=== PATIENT | female | born 1945 | race Caucasian/White ===

== ENCOUNTER 2020-09-15 12:58 | Inpatient (IN) | payer MEDICARE, BC ==
[~2020-09-15] VITALS: Ht 162.6 cm; Wt 54.4 kg
[2020-09-15] MEDS ORDERED: MAG HYDROX/AL HYDROX/SIMETH 30 ML UDC PO PRN (16:00)
[2020-09-15] MEDS ORDERED: TEMAZEPAM 7.5 MG CAPSULE PO PRN (16:00)
[2020-09-15] MEDS ORDERED: ZOLPIDEM TARTRATE 10 MG TABLET PO PRN (16:00)
[2020-09-15] MEDS ORDERED: BLOOD SUGAR DIAGNOSTIC 1 EACH STRIP IN ONE (16:00)
[2020-09-15] MEDS ORDERED: MAGNESIUM HYDROXIDE 30 ML UDC PO PRN (16:00)
[2020-09-15] MEDS ORDERED: ACETAMINOPHEN 325 MG TABLET PO PRN (16:00)
--- NOTE | 2020-09-15 16:05 | NUR ---
RN NOTE RECEIVED REPORT FROM MILA. RECEIVED PATIENT FROM [facility]. ARRIVED ON THE UNIT AT 1605 VIA GURNEY WITH 2 EMT ESCORTS. PATIENT ADMITTED ON A 5150 FOR GD AND DTO. PER HOLD PATIENT HAVE INCREASINGLY AGGRESSIVE AT HOME TOWARD HER AND CANNOT SAFELY REMAIN IN THE HOME. SAYS HE'S SCARED FOR THEIR SAFETY. PATIENT HAS EPISODES OF CONFUSION AND DEMENTIA. SINCE SHE ARRIVED SHE KEEPS WALKING ON THE HALLWAY AND STATING SHE DOESN'T HAVE ANY ROOM, NEEDS REDIRECTION. A/O X1. ON ROOM AIR, TOLERATING WELL. NO SOB NOTED. IN NO APPARENT DISTRESS. DENIES ANY PAIN OR DISCOMFORT AT THIS TIME. PT DENIES SI/HI AT THIS TIME. VS TAKEN. ACCUCHECK DONE. SKIN IS INTACT. WILL CONTINUE TO MONITOR PATIENT Q15 MINUTES FOR SAFETY BEHAVIOR GP'S PROTOCOL.
[2020-09-15] MEDS ORDERED: METO25TA6 PO (16:30)
[2020-09-15] MEDS ORDERED: MELO-105 PO (16:30)
[2020-09-15] MEDS ORDERED: ROSU5TAB PO (16:30)
[2020-09-15] MEDS ORDERED: [UNRECOGNIZED DRUG - CODE] IM (16:30)
[2020-09-15 16:45] VITALS: BP 147/114
[2020-09-15 17:24] VITALS: BP 147/114
[2020-09-15] MEDS ORDERED: QUETIAPINE FUMARATE 25 MG TABLET PO SCH (19:30)
[2020-09-15 21:17] VITALS: BP 144/87
[2020-09-15] MEDS: METOPROLOL TARTRATE 25 MG TABLET PO SCH (21:45)
--- NOTE | 2020-09-15 21:52 | NUR ---
ANGELIC NOT GIVEN CONSENT FOR PSCY MEDS NOT SIGNED BY PHYSICIAN WILL FOLLOW UP WITH MD.
--- NOTE | 2020-09-16 07:30 | NUR ---
RN NOTES PT AWAKE, ALERT AND VERBALLY RESPONSIVE, CALM, WALKING ALONG THE HALLWAY WITH SLOW AND STEADY GAIT, SAFETY PRECAUTIONS OBSERVED.
[2020-09-16 08:00] VITALS: BP 147/81
[2020-09-16] MEDS: METOPROLOL TARTRATE 25 MG TABLET PO SCH ×2 (08:21→21:00)
[2020-09-16 16:00] VITALS: BP 136/70
--- NOTE | 2020-09-16 16:31 | NUR ---
Individual Therapy: SW met with pt. inactivity room to conduct individual therapy regarding Positive Coping Mechanisms. Patient was alert and oriented. Pt. is pleasant and remained calm & cooperative. Patient stated that during stressful times, she attempts to be understanding and becomes anxious. SW educate dpt. about positive coping mechanisms. Pt. expressed understanding and stated she is willing to practice positive coping mechanisms. SW will continue to provide individual therapy as needed.
[2020-09-16] MEDS: QUETIAPINE FUMARATE 25 MG TABLET PO SCH (17:27)
--- NOTE | 2020-09-16 18:16 | NUR ---
RN NOTES PT AWAKE, ALERT, WALKING ALONG THE HALLWAY, WITH CONFUSION AND FLIGHT OF IDEAS, REDIRECTABLE, ABLE TO FOLLOW INSTRUCTIONS, PM MEDS GIVEN, COMPLIANT WITH MEDICATIONS, NEEDS ATTENDED.
[2020-09-16 18:20] LABS: ALBUMIN 4.5 g/dL (3.4-5.0); BILIRUBIN,TOTAL 0.4 mg/dL (0.2-1.0); CALCIUM, SERUM 9.9 mg/dL (8.5-10.1); CREATININE 0.9 mg/dL (0.6-1.3); POTASSIUM 3.7 mmol/L (3.5-5.1); TOTAL PROTEIN, SERUM 8.2 g/dL (6.4-8.2)
[2020-09-16 19:55] VITALS: BP 148/91
[2020-09-16 20:24] VITALS: BP 148/91
[2020-09-16 20:54] VITALS: BP 106/66
[2020-09-16 21:40] VITALS: BP 106/66
[2020-09-16] MEDS: DIVALPROEX SODIUM 125 MG CAP.SPRINK PO SCH (21:52)
--- NOTE | 2020-09-16 21:53 | NUR ---
RN NOTE: REFUSED LOPRESSOR PATIENT REFUSED LOPRESSOR 25 MG, BP 106/66, 75. PT. IS EASILY AGITATED, ANXIOUS & WALKS AWAY STATING," I TOLD YOU THIS LAST NIGHT, YOU ARE A DEMON." GAVE SPACE TO THE PATIENT TO CALM DOWN & WILL CONTINUE TO MONITOR FOR SAFETY, MOOD & BEHAVIOR.
--- NOTE | 2020-09-16 22:13 | NUR ---
RN NOTE: CONFUSED/DISORIENTED SINCE THE BEGINNING OF SENIOR ORACLE DBA, PATIENT NOTED TO BE VERY CONFUSED, EASILY AGITATED, RESTLESS & ANXIOUS, VERY PARANOID & DELUSIONAL, DISORIENTED, NON REDIRECTABLE AT TIMES, PATIENT KEEPS REMOVING HER CLOTHES, SOCKS & KEEPS MAKING & UNMAKING HER BED SEVERAL TIMES. PT. KEEPS REPEATING," WHERE IS MY , MY CHILDREN & THE DOGS THE ONE GOT KILLED." PT. IS BEING REDIRECTED FREQUENTLY. SAFETY MEASURES IN PLACE. WILL CONTINUE TO MONITOR CLOSELY FOR MOOD, BEHAVIOR & SAFETY.
[2020-09-17 08:00] VITALS: BP 178/97
[2020-09-17] MEDS: QUETIAPINE FUMARATE 25 MG TABLET PO SCH ×2 (09:00→16:14)
[2020-09-17] MEDS: DIVALPROEX SODIUM 125 MG CAP.SPRINK PO SCH ×2 (09:22→21:39)
[2020-09-17] MEDS: METOPROLOL TARTRATE 25 MG TABLET PO SCH ×2 (09:22→21:39)
--- NOTE | 2020-09-17 09:30 | NUR ---
RN NOTE: PATIENTS DR. VIOLA CLIFFORD REQUESTING TO SPEAK WITH , PHONE NUMBER PROVIDED TO DR. ANAND. WILL CONTINUE TO MONITOR PATIENT.
--- NOTE | 2020-09-17 14:45 | NUR ---
Phone call: SW spoke to the (Wilmar Adorno, ) via phone at 1445 pm to retrieve historian for the pt. Pt is a poor historian and non responsive due to psychosis during assessment. SW attempted to assess the pt at 1220 pm and the second attempt at 1345pm. SW also discussed possible discharge plan to house or alternate placement once the pt is medically discharge from home.
--- NOTE | 2020-09-17 15:42 | NUR ---
Social service phone call: [facility] [address] [place] [phone]; ), regarding pt's referral packet to be reviewed for acceptance at facility after medically discharged from the hospital
--- NOTE | 2020-09-17 15:42 | NUR ---
Initial Discharge Plan: Pt currently resides at [facility] [place]. [address], . If pt does not discharge to home , SW spoke to Admission ([facility]) [phone] to review pt.s referral packet. LAURYN will work the pt and the MD appropriate discharged planning. SW will form a safe and proper discharge.
[2020-09-17 16:00] VITALS: BP 119/70
[2020-09-17 20:10] VITALS: BP 157/82
[2020-09-17 20:13] VITALS: BP 157/82
--- NOTE | 2020-09-17 20:33 | NUR ---
RN NOTE SNACK GIVEN TO THE PATIENT & TOLERATED WELL.
[2020-09-18 08:00] VITALS: BP 141/91
[2020-09-18] MEDS: DIVALPROEX SODIUM 125 MG CAP.SPRINK PO SCH (08:21)
[2020-09-18] MEDS: QUETIAPINE FUMARATE 25 MG TABLET PO SCH (08:21)
[2020-09-18] MEDS: METOPROLOL TARTRATE 25 MG TABLET PO SCH ×2 (08:22→20:36)
[2020-09-18 16:00] VITALS: BP 156/80
--- NOTE | 2020-09-18 20:00 | NUR ---
RN NOTE RECEIVED PT. AMBULATING IN THE HALLWAY, STEADY, COMMUNICATING WITH PEERS. WORRIED & LOOKING FOR HER . REDIRECTED THE PATIENT. SNACK GIVEN & TOLERATED WELL.
[2020-09-18 20:21] VITALS: BP 151/83
[2020-09-18 20:22] VITALS: BP 151/83
[2020-09-18] MEDS: OLANZAPINE ZYDIS 5 MG TAB.RAPDIS PO SCH (21:16)
[2020-09-19 08:00] VITALS: BP 151/91
[2020-09-19] MEDS: METOPROLOL TARTRATE 25 MG TABLET PO SCH ×2 (08:09→21:32)
--- NOTE | 2020-09-19 10:36 | NUR ---
Initial Discharge plan: SW spoke to the (Wilmar Adorno [phone]) regarding discharge plan via phone at 1025 am. Pt currently resides at [address] [place], [place] [address] [place]. [address],[phone]. If pt does not discharge to home, SW spoke to Admission ([facility], [address] [place] [address] to review pt.s referral packet. LAURYN will work the pt and the MD appropriate discharged planning. SW will form a safe and proper discharge.
--- NOTE | 2020-09-19 11:10 | NUR ---
Phone call: SW spoke with admissions (Rita [phone]) [facility], [phone], [address] [place] [address]) regarding availability and acceptance with pt. SW sent referral packet to admission (Rita : , . Plan: SW to follow up with admissions (Rita :([phone]) [facility] with acceptance.
[2020-09-19] MEDS: clonazePAM 0.5 MG TABLET PO PRN ×2 (12:06→16:34)
--- NOTE | 2020-09-19 12:06 | NUR ---
RN NOTE: ANXIETY PT EXHIBITING INCREASED ANXIETY AND AGITATION. RUMINATING RE "HOW DO I GET OUT OF HERE" AND "MY IS NOT IN THE COUNTRY. VIOLA. HIS NAME IS VIOLA". HYPERVERBAL, THOUGHT BLOCKING, PACING THE HALLWAY. MEDICATED WITH KLONOPIN 0.5 MG PO
[2020-09-19 16:00] VITALS: BP 121/50
--- NOTE | 2020-09-19 16:34 | NUR ---
RN NOTE: ANXIETY PT EXHIBITING INCREASED AGITATION AND ANXIETY. ELEVATED BP. RUMINATING RE BEING MISSING. MEDICATED WITH KLONOPIN 0.5 MG PO PRN.
[2020-09-19 20:01] VITALS: BP 149/80
[2020-09-19] MEDS: ATORVASTATIN 10 MG TABLET PO SCH (21:30)
[2020-09-19] MEDS: OLANZAPINE ZYDIS 5 MG TAB.RAPDIS PO SCH (21:33)
[2020-09-20 08:00] VITALS: BP 149/70
[2020-09-20] MEDS: METOPROLOL TARTRATE 25 MG TABLET PO SCH ×2 (08:13→21:07)
[2020-09-20 16:00] VITALS: BP 158/86
--- NOTE | 2020-09-20 16:20 | NUR ---
RN NOTE: ANXIETY PT ANXIOUS ELEVATED BP. MEDICATED WITH KLONOPIN 0.5 MG PO PRN.WILL CONTINUE MONITORING
[2020-09-20] MEDS: clonazePAM 0.5 MG TABLET PO PRN (16:21)
--- NOTE | 2020-09-20 17:30 | NUR ---
RN NOTE- NOTIFIED THAT PT TO HAVE MODERNA 2ND DOSE TOMORROW OR COVID. PHARMACY STATED THEY DONT CARRY MODERNA. PHONED AND INFORMED HIM AFTER SPEAKING W DIRECTOR CAMRON STEVENS. VERBALIZED UNDERSTANDING. STATED HE WILL TRY TO OBTAIN AFTER DC.
--- NOTE | 2020-09-20 17:47 | NUR ---
GPS RN NOTE: DR PATTEN NOTIFIED PT BP ELEVATED 169/85 P 69 REACHED AFTER 30 MIN 158/84 PULSE 74.PER MD CONTINUE MONITORING . PATIENT DUE FOR SECOND DOSE OF MODERNA AT 09/21/20 DR. PATTEN NOTIFIED PER MD SHE CAN GET VACCINE AFTER THE DISCHARGE . PATIENT NOTIFIED AND AGREED. WILL CONTINUE MONITORING.
[2020-09-20 20:21] VITALS: BP 159/79
[2020-09-20] MEDS: ATORVASTATIN 10 MG TABLET PO SCH (21:06)
[2020-09-20] MEDS: OLANZAPINE ZYDIS 5 MG TAB.RAPDIS PO SCH (21:06)
[2020-09-20 22:00] VITALS: BP 132/74
[2020-09-20] MEDS: TEMAZEPAM 7.5 MG CAPSULE PO PRN (23:10)
--- NOTE | 2020-09-20 23:14 | NUR ---
GPS-RN NOTES: INSOMNIA PATIENT UNABLE TO SLEEP. ADMINISTERED RESTORIL 15MG PO ORDERED. WILL CONTINUE TO MONITOR.
[2020-09-21 08:00] VITALS: BP 140/72
[2020-09-21] MEDS: METOPROLOL TARTRATE 25 MG TABLET PO SCH ×2 (09:08→21:56)
[2020-09-21 16:00] VITALS: BP_SYST 155; BP_SYST 99; BP_DIAS 59; BP_DIAS 81
[2020-09-21 20:06] VITALS: BP 114/75
[2020-09-21] MEDS: ATORVASTATIN 10 MG TABLET PO SCH (21:55)
[2020-09-21] MEDS: OLANZAPINE ZYDIS 5 MG TAB.RAPDIS PO SCH (21:56)
[2020-09-22 08:00] VITALS: BP 130/99
[2020-09-22] MEDS: METOPROLOL TARTRATE 25 MG TABLET PO SCH ×2 (09:38→21:16)
[2020-09-22 16:00] VITALS: BP 135/65
[2020-09-22 20:00] VITALS: BP 138/65
[2020-09-22 20:54] VITALS: BP 138/65
[2020-09-22] MEDS: OLANZAPINE ZYDIS 5 MG TAB.RAPDIS PO SCH (21:42)
[2020-09-22] MEDS: ATORVASTATIN 10 MG TABLET PO SCH (21:42)
[2020-09-23 08:00] VITALS: BP 167/81
[2020-09-23] MEDS ORDERED: CLONIDINE HCL 0.1 MG TABLET PO PRN (09:30)
[2020-09-23] MEDS: METOPROLOL TARTRATE 25 MG TABLET PO SCH ×2 (09:33→21:50)
[2020-09-23 16:00] VITALS: BP 152/88
--- NOTE | 2020-09-23 16:27 | NUR ---
Assisted Living Contact: SW called esthetician/spa coordinator, Rita , and left a voicemail stating that the SW would like to follow up on the referral.
--- NOTE | 2020-09-23 16:28 | NUR ---
Family Contact: SW spoke to the pts , Wilmar Adorno ([phone]), who stated that the pt cannot be discharged home under any circumstance as he is the main trigger for the pts aggression. Pts stated that the only option is [facility] and SW stated that she will continue to follow up and inform him about any updates.
[2020-09-23 21:20] VITALS: BP 150/79
[2020-09-23] MEDS: OLANZAPINE ZYDIS 5 MG TAB.RAPDIS PO SCH (21:50)
[2020-09-23] MEDS: ATORVASTATIN 10 MG TABLET PO SCH (21:50)
[2020-09-24 08:00] VITALS: BP 149/90
[2020-09-24] MEDS: METOPROLOL TARTRATE 25 MG TABLET PO SCH ×2 (08:32→21:23)
--- NOTE | 2020-09-24 09:00 | NUR ---
WANDERING ABOUT UNIT,OFFERS NO COMPLAINTS.VERY PLEASANT AND CONFUSED.
--- NOTE | 2020-09-24 11:01 | NUR ---
Family Contact: LAURYN spoke to the pts , Wilmar Adorno ([phone]), who stated that he wanted an update on the pts treatment and discharge plan. LAURYN stated that she has been trying to contact the admissions at [facility] and once there is confirmation and the necessary steps to the admission are taken, then the pt will be discharged. LAURYN assured him that she would keep him informed.
--- NOTE | 2020-09-24 11:01 | NUR ---
Assisted Living Contact: LAURYN called preventive maintenance coordinator, Rita , and left a voicemail stating that the LAURYN would like to follow up on the referral. Addendum: 09/30/20 at 0909 by LAURYN DICKSON Visual Journalist at [facility]
[2020-09-24 16:00] VITALS: BP 127/98
--- NOTE | 2020-09-24 16:32 | NUR ---
Assisted Living Contact: SW called surgical coordinator, Rita , at [facility] and she stated that she will have her DON come and evaluate the pt on Wednesday with a potential discharge date of Wednesday.
--- NOTE | 2020-09-24 16:36 | NUR ---
Family Contact: LAURYN spoke to the pts , Wilmar Adorno ([phone]), and informed him that the assessment will take place on Wednesday for a possible discharge for Wednesday.
[2020-09-24 21:01] VITALS: BP 162/79
[2020-09-24] MEDS: ATORVASTATIN 10 MG TABLET PO SCH (21:23)
[2020-09-24] MEDS: OLANZAPINE ZYDIS 5 MG TAB.RAPDIS PO SCH (21:23)
--- NOTE | 2020-09-25 06:29 | NUR ---
GPS RN CLOSING NOTES: PATIENT LAYING ON BED AWAKE, A/O X2, DISORGANIZED, SLEPT 6HOURS THIS SHIFT. NO S/S OF DISTRESS. RESPIRATION EVEN AND UNLABORED WITH EQUAL RISE AND FALL OF THE CHEST ON ROOM AIR. OFFERED FLUID TOLERATED. ALL PATIENT CARE NEEDS HAVE BEEN MET ANTICIPATED. WILL CONTINUE TO MONITOR FOR SAFETY, MOOD AND BEHAVIOR AND ENDORSE TO AM SHIFT.
[2020-09-25 06:52] LABS: BASOPHILS # (AUTO) 0.1 /CMM (0.0-0.2); BASOPHILS % (AUTO) 1.2 % (0.0-2.0); EOSINOPHILS % (AUTO) 2.6 % (0.0-6.0); HEMATOCRIT 39 % (33-45); HEMOGLOBIN 13.1 g/dL (11.5-14.8); LYMPHOCYTES % (AUTO) 34.7 % (20.0-44.0); MEAN CORPUSCULAR HGB CONC 33 g/dl (31.0-36.0); MEAN CORPUSCULAR VOLUME 89 fL (82-100); MONOCYTES # (AUTO) 0.5 /CMM (0.1-1.30); NEUTROPHILS # (AUTO) 3.1 /CMM (1.8-8.9); NEUTROPHILS % (AUTO) 53.5 % (43.0-81.0); PLATELET COUNT (AUTO) 274 /CMM (150-450); WHITE BLOOD COUNT (AUTO) 5.8 K/uL (4.3-11.0)
[2020-09-25 07:51] LABS: CALCIUM, SERUM 9.2 mg/dL (8.5-10.1); CREATININE 0.6 mg/dL (0.6-1.3); POTASSIUM 3.9 mmol/L (3.5-5.1)
[2020-09-25 08:00] VITALS: BP 137/80
[2020-09-25] MEDS: METOPROLOL TARTRATE 25 MG TABLET PO SCH ×2 (09:24→22:06)
[2020-09-25 16:00] VITALS: BP 150/78
--- NOTE | 2020-09-25 16:40 | NUR ---
Family Contact: SW spoke to the pts , Wilmar Adorno ([phone]), and confirmed that the pt is going to be evaluated by the facility on Wednesday and that the projected discharge date is Wednesday at this time.
[2020-09-25 20:00] VITALS: BP 160/83
[2020-09-25] MEDS: OLANZAPINE ZYDIS 5 MG TAB.RAPDIS PO SCH (22:05)
[2020-09-25] MEDS: ATORVASTATIN 10 MG TABLET PO SCH (22:05)
--- NOTE | 2020-09-26 06:49 | NUR ---
bet taker notes pt remains sleeping at this time, not in any distress noted. she's been cooperative even she's disoriented , compliance with her medication . patient still needs re-direction . Encourage pt to interact and atten group therapy and verbalize her needs and concerns. will continue Q 15 minutes monitoring for safety and behavior. will endorse to am nurse for continuity of care.
[2020-09-26 08:00] VITALS: BP 150/76
[2020-09-26] MEDS: METOPROLOL TARTRATE 25 MG TABLET PO SCH ×2 (08:25→21:13)
[2020-09-26 16:00] VITALS: BP 131/59
[2020-09-26 19:50] VITALS: BP 147/87
[2020-09-26 19:54] VITALS: BP 147/87
[2020-09-26] MEDS: OLANZAPINE ZYDIS 5 MG TAB.RAPDIS PO SCH (21:45)
[2020-09-26] MEDS: ATORVASTATIN 10 MG TABLET PO SCH (21:45)
[2020-09-27] VITALS (7 sets, daily range): BP systolic 144–200; BP diastolic 73–95
[2020-09-27] MEDS: METOPROLOL TARTRATE 25 MG TABLET PO SCH ×2 (08:40→20:21)
[2020-09-27] MEDS: AMLODIPINE BESYLATE 2.5 MG TABLET PO SCH (10:19)
--- NOTE | 2020-09-27 15:10 | NUR ---
Assisted Living Contact: LAURYN met with Jorje from [facility] as he conducted an evaluation for the pt to be admitted. Jorje stated that the pt presented really well but he noticed her by the door and spoke to the nurse who stated that she watches the door. Due to that, Jorje stated that she may need to stay longer because she may be an elopement risk. He stated that Wednesday may be a more appropriate discharge date instead of Wednesday. LAURYN stated that she will follow up on Wednesday.
--- NOTE | 2020-09-27 20:25 | NUR ---
RN NOTE: HYPERTENSION PATIENT'S BP IS 200/86, 79, DENIES ANY C/O CHEST PAIN, DIZZINESS, HEADACHE, BLURRED VISION. SCHEDULED METOPROLOL TARTRATE 25 MG PO ADMINISTERED. PATIENT IS RESTING IN SEMI TORREZ POSITION AT THIS TIME. NO ACUTE DISTRESS NOTED. CONTINUING TO MONITOR FOR CHANGE OF CONDITION.
--- NOTE | 2020-09-27 21:20 | NUR ---
RN NOTE PATIENT'S VITALS ARE 184/95, 65, 18, 97.9, 97% AT RA, NO C/O PAIN VERBALIZED BY THE PATIENT AT THIS TIME.
[2020-09-27] MEDS: ATORVASTATIN 10 MG TABLET PO SCH (21:21)
[2020-09-27] MEDS: OLANZAPINE ZYDIS 5 MG TAB.RAPDIS PO SCH (21:22)
--- NOTE | 2020-09-27 21:59 | NUR ---
RN NOTE: HYPERTENSION PATIENT'S VITALS ARE 185/93, 65, 20, 97.8, 96% AT RA. CLONIDINE 0.1 MG PRN ADMINISTERED ORDERED. PATIENT IS ASYMPTOMATIC AT THIS TIME. WILL CONTINUE TO MONITOR CLOSELY.
--- NOTE | 2020-09-27 22:35 | NUR ---
RN NOTE PATIENT'S VITALS ARE 158/73, 75, 18, 97.9, 96% AT ROOM AIR. NO ACUTE DISTRESS NOTED. CONTINUING TO MONITOR.
--- NOTE | 2020-09-27 23:15 | NUR ---
RN NOTE PATIENT'S VITALS ARE 144/76, 70, 18, 97.8, 97% AT ROOM AIR. PATIENT IS SLEEPING COMFORTABLY. NO ACUTE DISTRESS OR CHANGES NOTED. WILL CONTINUE TO MONITOR THE PATIENT CLOSELY.
[2020-09-28 08:00] VITALS: BP 152/77
[2020-09-28] MEDS: METOPROLOL TARTRATE 25 MG TABLET PO SCH ×2 (09:07→21:05)
[2020-09-28] MEDS: AMLODIPINE BESYLATE 2.5 MG TABLET PO SCH (09:08)
--- NOTE | 2020-09-28 09:20 | NUR ---
BP ELEVATED.PT. TOOK METOPROLOL ONLY AND WHEN ENCOURAGED TO TAKE NORVASC,VERY SUSPICIOUS AND THREW PILL ON FLOOR.
--- NOTE | 2020-09-28 16:00 | NUR ---
refused afternoon vitals.
--- NOTE | 2020-09-28 18:57 | NUR ---
no change in status.
--- NOTE | 2020-09-28 19:30 | NUR ---
GPS RN OPENING NOTE: PATIENT SITTING ON BED AWAKE, A/O X2. DENEIS PAIN. DENIES SI/HI AT THIS TIME. DISORGANIZED THOUGHT PROCESS BUT ABLE TO MAKE NEEDS KNOWN.. NO S/S OF PHYSICAL DISTRESS. RESPIRATION EVEN AND UNLABORED WITH EQUAL RISE AND FALL OF THE CHEST ON ROOM AIR. WILL CONTINUE TO MONITOR FOR SAFETY Q15 MINS WITH THE HELP OF STAFF TO MAINTAIN SAFETY.
[2020-09-28 20:36] VITALS: BP 142/72
[2020-09-28] MEDS: OLANZAPINE ZYDIS 5 MG TAB.RAPDIS PO SCH (21:04)
[2020-09-28] MEDS: ATORVASTATIN 10 MG TABLET PO SCH (21:05)
[2020-09-29 08:00] VITALS: BP 150/80
[2020-09-29] MEDS: AMLODIPINE BESYLATE 2.5 MG TABLET PO SCH (08:27)
[2020-09-29] MEDS: METOPROLOL TARTRATE 25 MG TABLET PO SCH ×2 (08:27→21:39)
[2020-09-29 16:00] VITALS: BP 154/69
[2020-09-29 20:00] VITALS: BP 144/54
[2020-09-29] MEDS: ATORVASTATIN 10 MG TABLET PO SCH (21:39)
[2020-09-29] MEDS: OLANZAPINE ZYDIS 5 MG TAB.RAPDIS PO SCH (21:39)
[2020-09-30] MEDS: TEMAZEPAM 7.5 MG CAPSULE PO PRN (00:08)
--- NOTE | 2020-09-30 06:51 | NUR ---
GPS RN CLOSING NOTES: PATIENT LAYING ON BED AWAKE, A/O X2. SLEPT 6HOURS THIS SHIFT. NO S/S OF DISTRESS. DENIES ANY PAIN. RESPIRATION EVEN AND UNLABORED WITH EQUAL RISE AND FALL OF THE CHEST ON ROOM AIR. ALL PATIENT CARE NEEDS HAVE BEEN MET ANTICIPATED. WILL CONTINUE TO MONITOR FOR SAFETY, MOOD AND BEHAVIOR AND ENDORSE TO AM SHIFT.
[2020-09-30 08:00] VITALS: BP 137/66
[2020-09-30] MEDS: AMLODIPINE BESYLATE 2.5 MG TABLET PO SCH (08:28)
[2020-09-30] MEDS: METOPROLOL TARTRATE 25 MG TABLET PO SCH ×2 (08:29→21:38)
--- NOTE | 2020-09-30 09:12 | NUR ---
Family Contact: SW spoke to the pts , Wilmra Adorno ([phone]), and informed him that the pt was evaluated on Wednesday and the senior informatica developer stated that the pt may pose as an elopement risk. SW stated that she will contact the facility and inquire about when they would be willing to accept the pt. SW stated that she will keep pts involved in the process.
--- NOTE | 2020-09-30 09:37 | NUR ---
Assisted Living Contact: LAURYN called Document Control ClerkJanet , and inquired about whether or not the pt can be discharged to their facility the following day. She stated that she will contact Jorje and let the SW know.
--- NOTE | 2020-09-30 14:05 | NUR ---
602 Form: LAURYN faxed a completed 602 form to [facility] with attn to Flora to the fax number: [phone].
--- NOTE | 2020-09-30 15:48 | NUR ---
Assisted Living Contact: Jorje from [facility] contacted the SW and stated that the pt will be accepted tomorrow.
[2020-09-30 16:00] VITALS: BP 123/67
--- NOTE | 2020-09-30 16:21 | NUR ---
Family Contact: LAURYN spoke to the pts , Wilmar Adorno ([phone]), and informed him the pt will discharge tomorrow and stated that she will be transported via [facility] and he stated he would be able to fund it.
[2020-09-30 20:00] VITALS: BP 155/66
[2020-09-30] MEDS: ATORVASTATIN 10 MG TABLET PO SCH (21:39)
[2020-09-30] MEDS: OLANZAPINE ZYDIS 5 MG TAB.RAPDIS PO SCH (21:39)
--- NOTE | 2020-10-01 06:27 | NUR ---
GPS RN NOTES: PATIENT TO BE DISCHARGED TODAY. COVID-19 SWAB FOR PLACEMENT TAKEN AND SENT TO LAB.
--- NOTE | 2020-10-01 06:35 | NUR ---
GPS RN CLOSING NOTES: PATIENT LAYING ON BED AWAKE, A/O PERSON AND PLACE. SLEPT 5.5HOURS THIS SHIFT. NO S/S OF DISTRESS. DENIES SI/HI, PAIN AT THIS TIME. RESPIRATION EVEN AND UNLABORED WITH EQUAL RISE AND FALL OF THE CHEST ON ROOM AIR. ALL PATIENT CARE NEEDS HAVE BEEN MET ANTICIPATED. WILL CONTINUE TO MONITOR FOR SAFETY, MOOD AND BEHAVIOR AND ENDORSE TO AM SHIFT.
[2020-10-01 08:00] VITALS: BP 150/82
--- NOTE | 2020-10-01 08:00 | NUR ---
RECEIVED PT. IN AM ,VS STABLE.NO ACUTE DISTRESS.SKIN WARM AND DRY.
[2020-10-01] MEDS: AMLODIPINE BESYLATE 2.5 MG TABLET PO SCH (08:33)
[2020-10-01] MEDS: METOPROLOL TARTRATE 25 MG TABLET PO SCH (08:34)
--- NOTE | 2020-10-01 08:49 | NUR ---
ShelterBatch Records Clerk [place] Contact: LAURYN called Janet Aguero, private marketing and promotions manager ([phone]), and inquired about whether or not the pt has a psychiatrist lined up and she stated that she was working on referring the pt to Dr. Brisa De Jesus, with [facility]. She asked the SW to send her some paperwork regarding most recent progress notes and medication list. LAURYN sent the information.
--- NOTE | 2020-10-01 12:38 | NUR ---
Discharge Note: Pt will be discharged to [facility] located at [address] [place] [address], [place] [address]; . Pt will be transported via [facility] at they will be picking up the pt between 12:30-1pm. Pts , Wilmar ([phone]), was notified of the discharge. Upon discharge, pt appears to be in a euthymic mood and presents with an anxious affect. Pt appears to be oriented x2 (place and self). Pt denies suicidal and homicidal ideation as well as auditory and visual hallucinations. Pt appears to be ambulatory with a steady gait. Pt appears to be well groomed and appropriately dressed. Pt will be under the care of psychiatrist, Dr. Callahan, located at [address] [facility] [address], [place] [address]; per pts private audio/visual manager, Janet ([phone]). Pt will also be under the care of revenue liaison, Dr. Rodolfo Guo, located at [address] [facility] [address], [place] [address]; . Pts multidisciplinary exit care was completed, signed and a copy was provided to the pt.
--- NOTE | 2020-10-01 13:25 | NUR ---
ALL SIGNATURES OBTAINED.PAPERS COMPLETE.TAKEN TO LOBBY FOR DC BY BAND SAW RUNNER IN W/C.VERY CONFUSED,BUT DENIES SUICIDAL OR HOMICIDAL IDEATION.TAKEN TO FACILITY BY PRODUCTION MANUFACTURING WORKER.
[2020-10-01 16:00] VITALS: BP 133/54
== END 2020-10-01 13:15 | DRG 885 ==
LOC: GPS 15:54
PROVIDERS: ADMIT Psychiatry & Neurology Psychiatry; ATTEND Nurse Practitioner Acute Care
DX: F25.9 Schizoaffective disorder, unspecified (principal); F29 Unspecified psychosis not due to a substance or known physiological condition; F41.9 Anxiety disorder, unspecified; Z73.6 Limitation of activities due to disability; R53.1 Weakness; R27.8 Other lack of coordination; Z91.81 History of falling; E78.5 Hyperlipidemia, unspecified; I10 Essential (primary) hypertension; F03.90 Unspecified dementia, unspecified severity, without behavioral disturbance, psychotic disturbance, mood disturbance, and anxiety; F32.9 Major depressive disorder, single episode, unspecified; Z79.899 Other long term (current) drug therapy
CPT/HCPCS: 36415; 71045-TC; 80048-TC; 80053-TC; 80061-TC; 82962-TC; 85025-TC; 87081-TC

== ENCOUNTER → 2022-03-14 | Emergency (ER) | payer MEDICARE, BC ==
[~2022-03-14] VITALS: Ht 177.8 cm; Wt 61.7 kg
[~2022-03-14] MED LIST: MELO-105 PO; METO25TA6 PO; ROSU5TAB PO; [UNRECOGNIZED DRUG - CODE] IM
--- NOTE | 2022-03-14 14:00 | NUR ---
ETA 1500 BLS TRANSPORT VIA [facility].
[2022-03-14 14:48] VITALS: BP 138/79
--- NOTE | 2022-03-14 14:49 | NUR ---
Patient discharged back to snf in stable condition. Written and verbal after care instructions given to EMT and vehicle care specialist , verbalized understanding of instruction.
== END ==
LOC: ER 12:20
DX: M25.552 Pain in left hip (principal); I10 Essential (primary) hypertension; Z96.642 Presence of left artificial hip joint; Z79.899 Other long term (current) drug therapy
CPT/HCPCS: 73502

== ENCOUNTER 2023-10-08 12:22 | Emergency (ER) | payer MEDICARE, BC ==
[~2023-10-08] VITALS: Ht 165.1 cm; Wt 64.4 kg
[2023-10-08 14:09] VITALS: BP 125/60; TEMP 98.4; O2SAT 97
== END 2023-10-08 14:10 ==
LOC: ER 12:24
DX: S09.90XA Unspecified injury of head, initial encounter (principal); F03.90 Unspecified dementia, unspecified severity, without behavioral disturbance, psychotic disturbance, mood disturbance, and anxiety; I10 Essential (primary) hypertension; E78.5 Hyperlipidemia, unspecified; Z96.649 Presence of unspecified artificial hip joint; Z79.899 Other long term (current) drug therapy; W18.30XA Fall on same level, unspecified, initial encounter; Y93.89 Activity, other specified; Y92.89 Other specified places as the place of occurrence of the external cause; Y99.8 Other external cause status
CPT/HCPCS: 70450-TC

== ENCOUNTER 2024-02-26 11:23 | Inpatient (IN) | payer MEDICARE, BC ==
[~2024-02-26] VITALS: Ht 165.1 cm; Wt 65.8 kg
[2024-02-26 12:04] LABS: BASOPHILS # (AUTO) 0.1 K/uL (0.0-0.2); BASOPHILS % (AUTO) 0.6 % (0.0-2.0); EOSINOPHILS # (AUTO) 0.1 K/uL (0.0-0.7); EOSINOPHILS % (AUTO) 0.9 % (0.0-6.0); HEMATOCRIT 37 % (33-45); HEMOGLOBIN 12.4 g/dL (11.5-14.8); LYMPHOCYTES # (AUTO) 0.8 K/uL (0.8-4.8); LYMPHOCYTES % (AUTO) 8.4 % (20.0-44.0); MEAN CORPUSCULAR HEMOGLOBIN 30 PG (26.0-33.0); MEAN CORPUSCULAR HGB CONC 34 g/dl (31.0-36.0); MEAN CORPUSCULAR VOLUME 87 fL (82-100); MONOCYTES # (AUTO) 0.5 K/uL (0.1-1.30); MONOCYTES % (AUTO) 4.8 % (2.0-12.0); NEUTROPHILS # (AUTO) 8.3 K/uL (1.8-8.9); NEUTROPHILS % (AUTO) 85.3 % (43.0-81.0); PLATELET COUNT (AUTO) 316 K/uL (150-450); RED BLOOD CELL COUNT(AUTO) 4.19 MIL/uL (4.0-5.2); RED CELL DISTRIBUTION WIDTH 14.2 % (11.5-15.0); WHITE BLOOD COUNT (AUTO) 9.7 K/uL (4.3-11.0)
[2024-02-26 12:11] LABS: CALCIUM, SERUM 9.7 mg/dL (8.5-10.1); CARBON DIOXIDE 32 mmol/L (21-32); CHLORIDE 106 mmol/L (98-107); CREATININE 0.9 mg/dL (0.6-1.3); GLUCOSE 109 mg/dL (74-106); POTASSIUM 3.9 mmol/L (3.5-5.1); SODIUM SERUM 143 mmol/L (136-145); UREA NITROGEN, BLOOD 23 mg/dL (7-18)
[2024-02-26] MEDS ORDERED: ASPIRIN 325 MG TABLET ONE (13:09)
[2024-02-26] MEDS ORDERED: OLAN2.5T3 PO (13:24)
[2024-02-26] MEDS ORDERED: HYDR25TA4 PO (13:24)
[2024-02-26] MEDS ORDERED: TRAZ-257 PO (13:24)
[2024-02-26] MEDS ORDERED: CLON0.122 PO (13:24)
[2024-02-26] MEDS ORDERED: FURO20TA4 PO (13:24)
[2024-02-26] MEDS ORDERED: IBUP-1953 PO (13:24)
[2024-02-26] MEDS: ASPIRIN 325 MG TABLET PO ONE (13:28)
[2024-02-26] MEDS ORDERED: ONDANSETRON HCL/PF 4 MG/2 ML VIAL IVP PRN (15:00)
[2024-02-26] MEDS ORDERED: ACETAMINOPHEN 325 MG TABLET PO PRN (15:00)
[2024-02-26] MEDS ORDERED: Z GUARD REMEDY 4 OZ OINT TP PRN (15:00)
[2024-02-26] MEDS ORDERED: clonazePAM 1 MG TABLET PO PRN (15:00)
[2024-02-26] MEDS ORDERED: ZOLPIDEM TARTRATE 5 MG TABLET PO PRN (15:00)
[2024-02-26] MEDS ORDERED: MAG HYDROX/AL HYDROX/SIMETH 30 ML UDC PO PRN (15:00)
[2024-02-26] MEDS ORDERED: MAGNESIUM HYDROXIDE 30 ML UDC PO PRN (15:00)
[2024-02-26] MEDS ORDERED: HYDROCODONE/APAP 5/325MG TABLET PO PRN (15:00)
[2024-02-26 16:30] VITALS: BP 150/68; TEMP 97.9; O2SAT 99
[2024-02-26] MEDS: IV NS 0.9% 1,000 ML IV PRN (18:38)
[2024-02-26 20:30] VITALS: BP 169/80; TEMP 98.2; O2SAT 95
[2024-02-26] MEDS: ENOXAPARIN SODIUM 40 MG/0.4 ML DISP.SYRIN SQ SCH (22:47)
[2024-02-26] MEDS: TRAZODONE 50 MG TABLET PO SCH (22:48)
[2024-02-27 04:49] VITALS: BP 151/66; TEMP 97.5; O2SAT 96
[2024-02-27 07:38] LABS: BASOPHILS # (AUTO) 0.1 K/uL (0.0-0.2); BASOPHILS % (AUTO) 0.6 % (0.0-2.0); EOSINOPHILS # (AUTO) 0.2 K/uL (0.0-0.7); EOSINOPHILS % (AUTO) 2.1 % (0.0-6.0); HEMATOCRIT 39 % (33-45); LYMPHOCYTES # (AUTO) 1.8 K/uL (0.8-4.8); LYMPHOCYTES % (AUTO) 19.8 % (20.0-44.0); MEAN CORPUSCULAR HEMOGLOBIN 29 PG (26.0-33.0); MEAN CORPUSCULAR HGB CONC 33 g/dl (31.0-36.0); MEAN CORPUSCULAR VOLUME 87 fL (82-100); MONOCYTES # (AUTO) 0.6 K/uL (0.1-1.30); MONOCYTES % (AUTO) 6.4 % (2.0-12.0); NEUTROPHILS # (AUTO) 6.6 K/uL (1.8-8.9); NEUTROPHILS % (AUTO) 71.1 % (43.0-81.0); PLATELET COUNT (AUTO) 269 K/uL (150-450); RED BLOOD CELL COUNT(AUTO) 4.46 MIL/uL (4.0-5.2); RED CELL DISTRIBUTION WIDTH 14.4 % (11.5-15.0); WHITE BLOOD COUNT (AUTO) 9.3 K/uL (4.3-11.0)
[2024-02-27] MEDS: PANTOPRAZOLE 40 MG TABLET.DR PO SCH (07:52)
[2024-02-27 07:53] LABS: CALCIUM, SERUM 9.7 mg/dL (8.5-10.1); CARBON DIOXIDE 25 mmol/L (21-32); CHLORIDE 104 mmol/L (98-107); CREATININE 0.6 mg/dL (0.6-1.3); GLUCOSE 97 mg/dL (74-106); MAGNESIUM 2.3 mg/dL (1.8-2.4); POTASSIUM 3.3 mmol/L (3.5-5.1); SODIUM SERUM 138 mmol/L (136-145); UREA NITROGEN, BLOOD 13 mg/dL (7-18)
[2024-02-27 08:00] VITALS: BP 155/91; TEMP 97.9; O2SAT 96
[2024-02-27] MEDS: OLANZAPINE 2.5 MG TABLET PO SCH (08:08)
[2024-02-27] MEDS: POTASSIUM CHLORIDE 20 MEQ TAB.PRT.SR PO ONE (10:01)
[2024-02-27 12:00] VITALS: BP 116/74; TEMP 98.1; O2SAT 97
[2024-02-27 16:30] VITALS: BP 151/57; TEMP 98.2; O2SAT 96
[2024-02-27 20:21] VITALS: BP 169/94; TEMP 98.1; O2SAT 100
[2024-02-28 00:53] VITALS: BP 133/74; TEMP 97.7; O2SAT 97
[2024-02-28 04:30] VITALS: BP 120/61; TEMP 98.4; O2SAT 95
[2024-02-28 06:47] LABS: CALCIUM, SERUM 9.4 mg/dL (8.5-10.1); CARBON DIOXIDE 25 mmol/L (21-32); CHLORIDE 107 mmol/L (98-107); CREATININE 0.6 mg/dL (0.6-1.3); GLUCOSE 97 mg/dL (74-106); POTASSIUM 3.4 mmol/L (3.5-5.1); SODIUM SERUM 140 mmol/L (136-145); UREA NITROGEN, BLOOD 15 mg/dL (7-18)
[2024-02-28 07:00] VITALS: BP 154/88; TEMP 97.3; O2SAT 95
[2024-02-28] MEDS: ATORVASTATIN 40 MG TABLET PO SCH (11:00)
[2024-02-28] MEDS: ASPIRIN 81 MG TAB.CHEW PO SCH (11:00)
[2024-02-28] MEDS: POTASSIUM CHLORIDE 20 MEQ TAB.PRT.SR PO ONE (11:00)
[2024-02-28 16:00] VITALS: BP 118/101; TEMP 97.4; O2SAT 97
[2024-02-28] MEDS: ENSURE ENLIVE 237 ML LIQUID (VANILLA) PO SCH (16:26)
[2024-02-28 20:00] VITALS: BP 147/67; TEMP 97.7; O2SAT 95
[2024-02-28] MEDS: CARVEDILOL 3.125 MG TABLET PO SCH (21:21)
[2024-02-29] VITALS: BP 110/86; TEMP 97.5; O2SAT 96
[2024-02-29 04:00] VITALS: BP_SYST 147; BP_DIAS 69; BP_DIAS 99; TEMP 97.2; O2SAT 95
[2024-02-29 06:39] LABS: BASOPHILS # (AUTO) 0.2 K/uL (0.0-0.2); BASOPHILS % (AUTO) 3.9 % (0.0-2.0); EOSINOPHILS # (AUTO) 0.2 K/uL (0.0-0.7); EOSINOPHILS % (AUTO) 5.1 % (0.0-6.0); HEMATOCRIT 35 % (33-45); HEMOGLOBIN 11.9 g/dL (11.5-14.8); LYMPHOCYTES # (AUTO) 1.5 K/uL (0.8-4.8); MEAN CORPUSCULAR HEMOGLOBIN 29 PG (26.0-33.0); MEAN CORPUSCULAR HGB CONC 34 g/dl (31.0-36.0); MEAN CORPUSCULAR VOLUME 86 fL (82-100); MONOCYTES # (AUTO) 0.4 K/uL (0.1-1.30); MONOCYTES % (AUTO) 7.8 % (2.0-12.0); NEUTROPHILS # (AUTO) 2.4 K/uL (1.8-8.9); NEUTROPHILS % (AUTO) 51.2 % (43.0-81.0); PLATELET COUNT (AUTO) 276 K/uL (150-450); RED BLOOD CELL COUNT(AUTO) 4.14 MIL/uL (4.0-5.2); RED CELL DISTRIBUTION WIDTH 14.3 % (11.5-15.0); WHITE BLOOD COUNT (AUTO) 4.7 K/uL (4.3-11.0)
[2024-02-29 07:20] LABS: ALANINE AMINOTRANSFERASE 17 U/L (12-78); ALBUMIN 2.9 g/dL (3.4-5.0); ALKALINE PHOSPHATASE 71 U/L (46-116); ASPARTATE AMINOTRANSFERASE 17 U/L (15-37); BILIRUBIN,TOTAL 0.4 mg/dL (0.2-1.0); CALCIUM, SERUM 9.3 mg/dL (8.5-10.1); CARBON DIOXIDE 24 mmol/L (21-32); CHLORIDE 108 mmol/L (98-107); CREATININE 0.5 mg/dL (0.6-1.3); GLUCOSE 95 mg/dL (74-106); MAGNESIUM 2.3 mg/dL (1.8-2.4); PHOSPHORUS 3.3 mg/dL (2.5-4.9); POTASSIUM 3.5 mmol/L (3.5-5.1); SODIUM SERUM 141 mmol/L (136-145); TOTAL PROTEIN, SERUM 6.1 g/dL (6.4-8.2); UREA NITROGEN, BLOOD 14 mg/dL (7-18)
[2024-02-29 08:44] VITALS: BP 159/58; TEMP 96.7; O2SAT 97
[2024-02-29 08:46] VITALS: BP 159/58
[2024-02-29] MEDS ORDERED: ATOR40TA PO (11:27)
[2024-02-29] MEDS ORDERED: CARV3.122 PO (11:27)
[2024-02-29] MEDS ORDERED: ASPI-1169 PO (11:27)
== END 2024-02-29 16:15 | DRG 913 ==
LOC: ER 11:28 → TELE 14:58 → MED 02-29 09:46
PROVIDERS: ATTEND Internal Medicine
DX: S09.90XA Unspecified injury of head, initial encounter (principal); I21.A1 Myocardial infarction type 2; W19.XXXA Unspecified fall, initial encounter; F03.90 Unspecified dementia, unspecified severity, without behavioral disturbance, psychotic disturbance, mood disturbance, and anxiety; E78.5 Hyperlipidemia, unspecified; I10 Essential (primary) hypertension; R40.2362 Coma scale, best motor response, obeys commands, at arrival to emergency department; R40.2142 Coma scale, eyes open, spontaneous, at arrival to emergency department; R40.2252 Coma scale, best verbal response, oriented, at arrival to emergency department; Z96.649 Presence of unspecified artificial hip joint
CPT/HCPCS: 36415; 70450-TC; 71045-TC; 80048-TC; 80053-TC; 83735-TC; 84100-TC; 84484-TC; 85025-TC; 87081-TC; 93307-TC; 97110-TC; 97112-TC; 97530-TC; A4223; A6403; G0378; J1650; J3490; J7030